=== PATIENT | male | born 1990 | race Caucasian/White ===

== ENCOUNTER → 2020-07-12 | Outpatient (CLI) | payer BC | END | disposition home or self-care (01) | LOC: RAD 16:01 | PROVIDERS: ATTEND Neurological Surgery | DX: Z01.811 Encounter for preprocedural respiratory examination (principal); Z01.810 Encounter for preprocedural cardiovascular examination; Z01.812 Encounter for preprocedural laboratory examination; M51.26 Other intervertebral disc displacement, lumbar region; M54.16 Radiculopathy, lumbar region; R79.1 Abnormal coagulation profile; R82.90 Unspecified abnormal findings in urine; R94.31 Abnormal electrocardiogram [ECG] [EKG]; M41.86 Other forms of scoliosis, lumbar region | CPT/HCPCS: 71046; 72110 ==